=== PATIENT | male | born 1995 | race Native Hawaiian/Other Pacific Islander ===

== ENCOUNTER 2018-06-03 14:54 | Emergency (ER) | payer OTHER ==
[~2018-06-03] VITALS: Ht 162.6 cm; Wt 56.7 kg
[~2018-06-03 14:54] MED LIST: Prednisone10 MG PO
[2018-06-03 15:37] LABS: Source, Urine Clean Catch
[2018-06-03 15:42] LABS: Appearance, Urine Clear (Clear); Bilirubin, Urine Neg (Neg); Blood, Urine 2+ (Neg); Color, Urine Yellow (P-Yellow); Glucose Qualitative, Urine Neg (Neg); Ketones, Urine 1+ (Neg); Leukocyte Esterase, Urine Neg (Neg); Nitrite, Urine Neg (Neg); Protein, Urine 1+ (Neg); Specific Gravity, Urine 1.015 (1.003-1.022); Urobilinogen, Urine NORM (Normal)
[2018-06-03] MEDS ORDERED: Vibramycin100 MG PO (16:10)
[2018-06-03 16:13] LABS: White Blood Cells, Urine 0-2 /hpf (0-5)
[2018-06-03 16:14] LABS: Bacteria Few /hpf; Squamous Epithelial Cells Not Seen /hpf (Few)
== END 2018-06-03 16:19 | disposition home or self-care (01) ==
LOC: ER 14:54
PROVIDERS: Psychiatry & Neurology Psychiatry
DX: R10.2 Pelvic and perineal pain (principal)
CPT/HCPCS: 76870; 81001; 99284-25

== ENCOUNTER 2018-11-22 13:45 | Emergency (ER) | payer OTHER ==
[~2018-11-22] VITALS: Ht 167.6 cm; Wt 59.0 kg
[~2018-11-22 13:45] MED LIST changes: +Vibramycin100 MG PO
== END 2018-11-22 14:32 | disposition home or self-care (01) ==
LOC: ER 13:45
DX: H61.21 Impacted cerumen, right ear (principal)
CPT/HCPCS: 99283

== ENCOUNTER → 2020-02-13 | Outpatient (CLI) | payer OTHER ==
[2020-02-17 00:09] LABS: CHLAMYDIA TRACHOMATIS, NAA Negative (Negative); NEISSERIA GONORRHOEAE, NAA Negative (Negative)
== END | disposition home or self-care (01) ==
LOC: LAB EV 16:01 → LAB SHORT 16:01
PROVIDERS: General Practice
DX: R35.0 Frequency of micturition (principal)
CPT/HCPCS: 87086; 87491; 87591

== ENCOUNTER → 2022-05-21 | Emergency (ER) | payer OTHER ==
[~2022-05-21] VITALS: Ht 162.6 cm; Wt 61.2 kg
== END ==
LOC: ER 11:31
DX: M25.511 Pain in right shoulder (principal)
CPT/HCPCS: 73030

== ENCOUNTER → 2025-04-06 | Outpatient (CLI) | payer OTHER ==
[2025-04-06 19:34] LABS: Chlamydia Trachomatis Urine NOT DETECTED (NOT DETECT); Neisseria Gonorrhoea Urine NOT DETECTED (NOT DETECT)
== END ==
LOC: LAB 15:18 → LAB SHORT 15:18
PROVIDERS: Physician Assistant Medical
DX: R10.2 Pelvic and perineal pain (principal)
CPT/HCPCS: 87491; 87591